=== PATIENT | female | born 1990 | race Caucasian/White ===

== ENCOUNTER 2022-11-14 05:30 | Inpatient (IN) | payer BC ==
[2022-11-14] MEDS ORDERED: Bupivacaine PF 0.5% 30 ML VIAL ONE (08:00)
[2022-11-14] MEDS ORDERED: Bupivacaine 0.25% HCL 30 ML VIAL ONE (08:00)
[2022-11-14] MEDS ORDERED: ePHEDrine Sulfate 50 MG/10 ML VIAL ONE (08:00)
[2022-11-14] MEDS ORDERED: Ondansetron PF 4 MG/2 ML Vial IVP PRN (23:49)
[2022-11-14] MEDS ORDERED: hydrALAZINE 20 MG/ML VIAL SLOW IVP PRN (23:49)
[2022-11-14] MEDS ORDERED: Ibuprofen 800 MG TAB PO PRN (23:49)
[2022-11-14] MEDS ORDERED: Lactated Ringer's 1,000 ML IV SCH (23:49)
[2022-11-14] MEDS ORDERED: Lidocaine 1% (PF) 30 ML VIAL SC PRN (23:49)
[2022-11-14] MEDS ORDERED: NS w/ Oxytocin 30 units 500 ML IV SCH ×2 (23:49)
[2022-11-14] MEDS ORDERED: HYDROcodone/Acetaminophen 5/325 mg Tablet PO PRN ×2 (23:49)
[2022-11-14] MEDS ORDERED: Promethazine HCl 25 MG/ML VIAL IM PRN (23:49)
[2022-11-14] MEDS ORDERED: Butorphanol Tartrate 1 MG/ML VIAL SLOW IVP PRN (23:49)
[2022-11-15 00:33] LABS: Hemoglobin 11.6 g/dL (12.0-15.5); Mean Corpuscular HGB CONC 33.5 g/dL (32.0-36.0); Mean Corpuscular Hemoglobin 28.2 pg (27.0-33.0); Mean Corpuscular Volume 84.2 fl (81.6-98.3); Mean Platelet Volume 11.4 fl (7.4-10.4); Platelet Count 241 10x3/uL (150-450); RBC Distribution Width 14.1 % (11.5-14.5); Red Blood Cell (RBC) Count 4.11 10x6/uL (3.90-5.03)
[2022-11-15 01:10] LABS: Syphilis Antibody Nonreactive (Nonreactive); Syphilis Antibody Index 0.04 S/CO (<1.00 Non-Reactive)
[2022-11-15 01:11] LABS: Hep B Surf Ag Non-Reactive S/CO (NonReactive)
[2022-11-15 02:34] VITALS: BMI 33.7
[2022-11-15] MEDS ORDERED: Misoprostol 100 MCG TAB VAG SCH ×2 (03:00→06:00)
[2022-11-15] MEDS ORDERED: Fentanyl 2 mcg/Bup 0.1% Cadd 100 ML ONE (08:08)
[2022-11-15] MEDS ORDERED: Promethazine HCl 25 MG/ML VIAL IM PRN ×2 (10:46→17:24)
[2022-11-15] MEDS ORDERED: diphenhydrAMINE 50 MG/ML VIAL IVP PRN ×2 (10:46→17:24)
[2022-11-15] MEDS ORDERED: ePHEDrine Sulfate 50 MG/10 ML VIAL SLOW IVP PRN (10:46)
[2022-11-15] MEDS ORDERED: Acetaminophen 325 MG TAB PO PRN (10:46)
[2022-11-15] MEDS ORDERED: Ondansetron PF 4 MG/2 ML Vial IVP PRN ×3 (10:46→20:52)
[2022-11-15] MEDS ORDERED: Moisturizing Cream (Eucerin) 113 GM JAR TOP PRN (10:46)
[2022-11-15] MEDS ORDERED: Lactated Ringer's 500 ML IV PRN (10:46)
[2022-11-15] MEDS ORDERED: Naloxone HCl 0.4 mg/ml Vial IVP PRN ×2 (10:46)
[2022-11-15] MEDS ORDERED: Fentanyl 2 mcg/Bupivacaine 0.1% Cassette 100 ML EPIDURAL SCH (11:00)
[2022-11-15] MEDS ORDERED: Communication Order-Pharmacy FS SCH ×2 (11:00→17:30)
[2022-11-15] MEDS ORDERED: Lidocaine 1% (PF) 30 ML VIAL ONE (16:26)
[2022-11-15] MEDS ORDERED: Fentanyl 100 MCG/2 ML VIAL ONE (16:40)
[2022-11-15] MEDS ORDERED: Midazolam HCl 2 mg/2 ml Vial ONE (16:43)
[2022-11-15] MEDS ORDERED: Dexamethasone 4 mg/ml Vial ONE (16:45)
[2022-11-15] MEDS ORDERED: Ondansetron PF 4 MG/2 ML Vial ONE (16:45)
[2022-11-15 16:50] LABS: RapidComm Collect By CBN
[2022-11-15] MEDS ORDERED: Glycopyrrolate 0.2 MG/ML 5 ML SYRINGE ONE (16:51)
[2022-11-15 16:53] LABS: RapidComm Collect By CBN; pH (Cord, venous) 7.232 (7.250-7.350)
[2022-11-15] MEDS ORDERED: diphenhydrAMINE 50 MG/ML VIAL IM PRN (17:24)
[2022-11-15] MEDS ORDERED: diphenhydrAMINE 25 MG CAP PO PRN ×2 (17:24→20:52)
[2022-11-15] MEDS ORDERED: FENTANYL 500 MCG/10 ML VIAL 1,000 MCG in Sodium Chloride 0.9% 30 ML IV PRN (17:24)
[2022-11-15] MEDS ORDERED: Naloxone HCl 0.4 mg/ml Vial IV PRN (17:24)
[2022-11-15] MEDS ORDERED: Zolpidem Tartrate 5 MG TAB PO PRN (17:24)
[2022-11-15] MEDS ORDERED: Fentanyl 100 MCG/2 ML VIAL SLOW IVP PRN (17:26)
[2022-11-15] MEDS ORDERED: Meperidine HCl/PF 25 MG/ML VIAL SLOW IVP PRN (17:26)
[2022-11-15] MEDS ORDERED: Ondansetron HCl/PF 4 MG/2 ML Vial IVP PRN (17:26)
[2022-11-15] MEDS ORDERED: Azithromycin 500 MG in Sodium Chloride 0.9% 250 ML 250 ML IVPB SCH (20:00)
[2022-11-15] MEDS ORDERED: CEFAZOLIN 2 GM in Sodium Chloride 0.9% 100 ML IVPB SCH (20:00)
[2022-11-15] MEDS ORDERED: Boostrix 0.5 ML (Tdap) VIAL (>/=7 yrs of age) IM ONE (20:52)
[2022-11-15] MEDS ORDERED: hydrALAZINE 20 MG/ML VIAL SLOW IVP PRN (20:52)
[2022-11-15] MEDS ORDERED: NS w/ Oxytocin 30 units 500 ML IV SCH (20:52)
[2022-11-15] MEDS ORDERED: Lanolin Ointment 7 GM TUBE TOP PRN (20:52)
[2022-11-15] MEDS ORDERED: Bisacodyl 10 MG SUPP PR PRN (20:52)
[2022-11-15] MEDS ORDERED: Simethicone Chewable 80 MG TAB PO PRN (20:52)
[2022-11-16 04:31] LABS: Hemoglobin 10.4 g/dL (12.0-15.5); Mean Corpuscular HGB CONC 33.4 g/dL (32.0-36.0); Mean Corpuscular Volume 83.8 fl (81.6-98.3); Mean Platelet Volume 10.9 fl (7.4-10.4); Platelet Count 238 10x3/uL (150-450); RBC Distribution Width 14.2 % (11.5-14.5); Red Blood Cell (RBC) Count 3.71 10x6/uL (3.90-5.03); White Blood Cell (WBC) Count 15.5 10x3/uL (3.5-10.5)
[2022-11-16] MEDS: Ibuprofen 800 MG TAB PO SCH ×3 (07:44→21:36)
[2022-11-16] MEDS: Docusate 100 MG CAP PO SCH ×3 (07:44→21:36)
[2022-11-16] MEDS: Ferrous Sulfate 325 MG TAB PO SCH ×3 (07:44→22:16)
[2022-11-16] MEDS: Prenatal Vitamin 1 TAB PO SCH (08:20)
[2022-11-16] MEDS ORDERED: HYDROcodone/Acetaminophen 5/325 mg Tablet PO PRN (09:31)
[2022-11-16] MEDS: HYDROcodone/Acetaminophen 5/325 mg Tablet PO PRN ×2 (09:40→21:39)
[2022-11-17] MEDS: Ibuprofen 800 MG TAB PO SCH ×2 (06:11→13:47)
[2022-11-17] MEDS: Ferrous Sulfate 325 MG TAB PO SCH (07:16)
[2022-11-17] MEDS: Prenatal Vitamin 1 TAB PO SCH (09:15)
[2022-11-17] MEDS: Docusate 100 MG CAP PO SCH (09:15)
[2022-11-17 11:54] VITALS: BP 132/81; TEMP 97.5
== END 2022-11-17 17:15 | disposition home or self-care (01) | DRG 788 ==
LOC: CSHLD 22:10 → CSHPP 11-15 20:30
PROVIDERS: ADMIT Obstetrics & Gynecology; ATTEND Obstetrics & Gynecology
PROC: 10D00Z1 Extraction of Products of Conception, Low, Open Approach (ICD-10-PCS; principal; 2022-11-15)
PROC: 10907ZC Drainage of Amniotic Fluid, Therapeutic from Products of Conception, Via Natural or Artificial Opening (ICD-10-PCS; 2022-11-15)
PROC: 0KQM0ZZ Repair Perineum Muscle, Open Approach (ICD-10-PCS; 2022-11-15)
DX: O76 Abnormality in fetal heart rate and rhythm complicating labor and delivery (principal); Z37.0 Single live birth; O99.893 Other specified diseases and conditions complicating puerperium; O70.1 Second degree perineal laceration during delivery; R00.0 Tachycardia, unspecified; Z20.822 Contact with and (suspected) exposure to COVID-19; O66.5 Attempted application of vacuum extractor and forceps; Z3A.40 40 weeks gestation of pregnancy
CPT/HCPCS: 36415; 51702; 82805; 85027; 86780; 86850; 86900; 86901; 87340; J0595; J1100; J2001; J2250; J2405; J2590; J3010; J3490; S0020